=== PATIENT | male | born 1980 | race Caucasian/White ===

== ENCOUNTER 2017-02-14 17:00 | Emergency (ER) | payer SELFPAY ==
[~2017-02-14] VITALS: Ht 172.7 cm; Wt 75.0 kg
[~2017-02-14 17:00] MED LIST: ACET-2178; IBUP-22
[2017-02-14 17:06] VITALS: BP 132/71
== END 2017-02-14 21:35 | disposition left against medical advice (07) ==
LOC: ER 18:28
DX: Z53.21 Procedure and treatment not carried out due to patient leaving prior to being seen by health care provider (principal)